=== PATIENT | male | born 1945 | race Caucasian/White ===

== ENCOUNTER → 2018-11-15 | Outpatient (CLI) | payer OTHER ==
[~2018-11-15] VITALS: Ht 180.3 cm; Wt 102.1 kg
[~2018-11-15] MED LIST: AMARYL4 MG PO; ASPIRIN325 PO; FLOMAX0.4 MG PO; FOSINOPRIL SODI40 M1 PO; GLUCOPHAGE XR500 MG PO; JARDIANCE25 MG PO; LIPITOR40 MG PO; TOPROL XL100 MG PO; TRULICITY1.5 MG/0.5 SUBQ; TYLENOL EXTRA500 MG PO; VITAMIN B-12500 MCG PO; VITAMIN D-32000 UNIT PO; ZETIA10 MG PO
--- NOTE | ~2018-11-15 | P ---
[facility] [address] [place] [address] PROCEDURE REPORT Name: MIGUE ASTUDILLO Room #: REG [facility]#: [id number] Admission: 11/15/18 ������������������ Attend Phys: Donald Dan MD Discharge: ������������������ Date of : 47 Report #: [id number] THIS REPORT FOR: //name// CC: Donald Degroot DATE OF SERVICE: 11/15/2018 BRIEF HISTORY: The patient is a 73-year-old male with history of colon polyps, for high risk screening colonoscopy. PREOPERATIVE DIAGNOSIS: History of colon polyps, high risk screening colonoscopy. POSTOPERATIVE DIAGNOSES: 1. Polyps x 2, cecum. 2. Diffuse colonic varices. 3. Patchy radiation proctitis, nonhemorrhagic. MEDICATIONS: Deep sedation with propofol per anesthesia. SPECIMENS: Colon polyps x 2. ESTIMATED BLOOD LOSS: 3 mL. PROCEDURE: Colonoscopy to cecum and terminal ileum with snare polypectomy. FINDINGS: Prior to propofol sedation, procedure of colonoscopy was discussed with the patient as well as potential risks and its complications. He indicates he understands and desires to proceed. DESCRIPTION OF PROCEDURE: With the patient in left lateral decubitus position, digital examination was completed, which revealed no abnormalities. Subsequently, Olympus video colonoscope was introduced in the rectum and advanced under direct vision to the cecum. Done with minimal difficulty. The cecum was identified by the ileocecal valve and the appendiceal orifice. I was able to visualize the distal segment of terminal ileum, which was inspected and noted to be unremarkable. At that point, the scope was slowly withdrawn and careful circumferential views obtained. Unfortunately, the prep was limited, especially in the proximal colon, there was a thick coating of bilious material and also some semi-solid material scattered about the colon, more so on the proximal colon and distal colon. In particular, the prep was fairly poor in the cecum. In spite of that, we could see 2 polyps, one was a diminutive polyp and removed with biopsy forceps. The other was a sessile polyp. This may be an inflammatory polyp as it has an irregular appearance. It was removed by [facility] [address] [place] [address] PROCEDURE REPORT Name: MIGUE ASTUDILLO Room #: REG DANIKA Rodas#: [id number] Admission: 11/15/18 ������������������ Attend Phys: Donald Dan MD Discharge: ������������������ Date of : 46 Report #: [id number] snare polypectomy. It was about 5-6 mm in greatest dimension. There was good hemostasis after removing this polyp. At that point, the scope was slowly withdrawn and careful circumferential views obtained. Again, there were limitations of the prep more so proximally than distally. As we withdrew the scope, the mucosa was within normal limits, normal vascular pattern, normal light reflex as well as could be visualized. Once again, the patient was noted to have colonic varices throughout the entire colon; however, there is no evidence of active bleeding. It is also noteworthy that there were no varices in the region of the polypectomies. As we withdrew the scope, no additional abnormalities were seen. We irrigated and cleaned the colon as well as possible, but some material remained and smaller lesions or flat lesions could have been overlooked. The scope was withdrawn in the rectum and no abnormalities were seen; however, upon retroflexion, there was some patchy erythema and possibly vascular ectasias. There was no evidence of bleeding. It is noted that the patient has had radiation therapy and this may represent radiation proctitis. Since he has not had problems with bleeding, no intervention was undertaken. The scope was withdrawn. The patient tolerated the procedure well. CONDITION OF THE PATIENT UPON DISCHARGE: Following procedure, the patient drowsy, aroused, conversant and will be discharged to home when fully ambulatory. INSTRUCTIONS TO THE PATIENT AND FAMILY AT THE TIME OF DISCHARGE: We will follow up on the pathology of polyp and make further recommendations; however, in view of the fact that there were significant limitations of the prep today, suggest return in 2 years for next high risk screening colonoscopy. If the patient has any further bleeding, he should seek immediate attention and even go in to the Emergency Room. He will return to the care of Dr. Kade Riddle and return to see me as needed. ��������������������������������������������� ���������������������������������������� By: ��������������������������������������������� 1027 35 Donald Dan MD /keshav
--- NOTE | 2018-11-18 14:06 | PATH ---
[facility] [address] [place] [address] PATHOLOGY RPT PROCEDURE Name: WILDAMIGUE Room #: REG DANIKA Mcgowan.#: [id number] ������������������ Admission: 11/15/18 ������������������ Date of : 46 Discharge: Report #: [id number] Path Case #: [id number] [facility] Accession Number: [id number] . 01 Material submitted: . cecum - BX POLYP AT CECUM X2 . 01 Clinical history: . History of polyps, colonic varices. . 02 Diagnosis: Colonic mucosa "biopsy polyp at cecum x 2": - One fragment reveals a polypoid, ulcerated granulation tissue with few hyperplastic glands without any evidence of adenomatous change, high-grade dysplasia or malignancy. - The other fragment reveals mild hyperplastic changes without any evidence of adenomatous change, high-grade dysplasia or malignancy. (SHA:pit; 11/18/2018) QTP/11/18/2018 . 02 Electronically signed: . Fuad Mora MD, Pathologist NPI- [id number] . 01 Gross description: . Received in formalin labeled "Migue Elizabeth, biopsy polyp at cecum x2" is a 0.6 x 0.6 x 0.3 cm aggregate of flowers-brown mucosa fragments. The specimen is submitted in A1. ([facility] 11/17/2018) SYC/SYC . 02 Pathologist provided ICD-10: K63.5 . 02 CPT . 919667 Specimen Comment: A courtesy copy of this report has been sent to Specimen Comment: [phone], . Specimen Comment: Report sent to / DR HUERTA Specimen Comment: A duplicate report has been generated due to demographic updates. Performed at: [address] [id number] MD Jaylen Hunter MD Phone: [phone] Performed at: [address] [id number] [address] [address] PATHOLOGY RPT PROCEDURE Name: MIGUE ELIZABETH Room #: REG DANIKA Mcgowan.#: [id number] ������������������ Admission: 11/15/18 ������������������ Date of : 46 Discharge: Report #: [id number] Path Case #: [id number] MD Hawa Banegas MD Phone: [phone]
== END | disposition home or self-care (01) ==
LOC: GI 07:45
DX: Z12.11 Encounter for screening for malignant neoplasm of colon (principal); Z86.010 Personal history of colon polyps; K63.5 Polyp of colon; K63.89 Other specified diseases of intestine; K62.7 Radiation proctitis; I86.8 Varicose veins of other specified sites; I10 Essential (primary) hypertension; E11.9 Type 2 diabetes mellitus without complications; I25.2 Old myocardial infarction; E78.5 Hyperlipidemia, unspecified; Z87.442 Personal history of urinary calculi; Z87.891 Personal history of nicotine dependence; Z85.46 Personal history of malignant neoplasm of prostate; Z94.9 Transplanted organ and tissue status, unspecified; Z98.41 Cataract extraction status, right eye; Z98.890 Other specified postprocedural states; Z79.899 Other long term (current) drug therapy; Z88.8 Allergy status to other drugs, medicaments and biological substances; Z79.82 Long term (current) use of aspirin
CPT/HCPCS: 62110; 62900

== ENCOUNTER → 2019-06-10 | Outpatient (CLI) | payer OTHER | LOC: SJCVCIMAG 09:35 | DX: I25.10 Atherosclerotic heart disease of native coronary artery without angina pectoris (principal); I10 Essential (primary) hypertension; E78.00 Pure hypercholesterolemia, unspecified; E11.9 Type 2 diabetes mellitus without complications; Z98.61 Coronary angioplasty status; Z87.891 Personal history of nicotine dependence ==

== ENCOUNTER → 2020-03-10 | Outpatient (CLI) | payer OTHER ==
[~2020-03-10] MED LIST changes: +HUMALOG KW100 UNIT/1 SUBQ; +HUMALOG100 UNIT/1 SUBQ; +TOUCH-TROL1 EACH INJECTION
== END ==
LOC: SJCVC 13:15
PROVIDERS: ATTEND Internal Medicine Cardiovascular Disease
DX: R94.31 Abnormal electrocardiogram [ECG] [EKG] (principal); I11.9 Hypertensive heart disease without heart failure; I25.10 Atherosclerotic heart disease of native coronary artery without angina pectoris; E78.00 Pure hypercholesterolemia, unspecified; I77.9 Disorder of arteries and arterioles, unspecified; E11.9 Type 2 diabetes mellitus without complications; Z79.82 Long term (current) use of aspirin; Z79.4 Long term (current) use of insulin; Z79.899 Other long term (current) drug therapy; Z87.891 Personal history of nicotine dependence

== ENCOUNTER → 2020-03-15 | Outpatient (CLI) | payer OTHER ==
[~2020-03-15] MED LIST changes: -HUMALOG KW100 UNIT/1 SUBQ; -HUMALOG100 UNIT/1 SUBQ; -TOUCH-TROL1 EACH INJECTION
== END ==
LOC: SJCVC 12:59
PROVIDERS: ATTEND Internal Medicine Cardiovascular Disease
DX: R94.31 Abnormal electrocardiogram [ECG] [EKG] (principal); R00.0 Tachycardia, unspecified; I44.4 Left anterior fascicular block; I10 Essential (primary) hypertension; I25.10 Atherosclerotic heart disease of native coronary artery without angina pectoris; E78.00 Pure hypercholesterolemia, unspecified; E11.9 Type 2 diabetes mellitus without complications; I77.9 Disorder of arteries and arterioles, unspecified; Z79.4 Long term (current) use of insulin; Z79.899 Other long term (current) drug therapy; Z87.891 Personal history of nicotine dependence

== ENCOUNTER → 2020-03-18 | Outpatient (CLI) | payer OTHER | LOC: SJCVCIMAG 08:05 | PROVIDERS: ATTEND Internal Medicine Cardiovascular Disease | DX: I37.8 Other nonrheumatic pulmonary valve disorders (principal); R94.31 Abnormal electrocardiogram [ECG] [EKG]; I25.10 Atherosclerotic heart disease of native coronary artery without angina pectoris; E11.9 Type 2 diabetes mellitus without complications; I10 Essential (primary) hypertension; E78.00 Pure hypercholesterolemia, unspecified; R53.83 Other fatigue; Z79.4 Long term (current) use of insulin; Z79.899 Other long term (current) drug therapy; Z87.891 Personal history of nicotine dependence ==

== ENCOUNTER 2020-03-23 06:23 | Inpatient (IN) | payer OTHER ==
[~2020-03-23] VITALS: Ht 180.3 cm; Wt 102.1 kg
--- NOTE | 2020-03-23 07:19 | EKG ---
[facility] [place] [address] ELECTROCARDIOGRAM REPORT Name: WILDAMIGUE Montanez Room #: REG [facility].#: [id number] Admission: 03/23/20 Attend Phys: Oscar Buckner MD, Discharge: Date of : 46 Report #: [id number] THIS REPORT FOR: cc: Kade Riddle Theodore M. 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 : 1945 Requested By: Oscar Buckner Order Number: [id number] MD: Miguel Mae Measurements Intervals [place] Rate: 83 P: 14 NM: 168 QRS: -41 QRSD: 120 T: 44 QT: 367 QTc: 432 Interpretive Statements Sinus rhythm Left anterior fascicular block Left ventricular hypertrophy Compared to ECG 01/03/2000 19:10:08 Left anterior fascicular block now present Poor R-wave progression no longer present Electronically Signed On 03-23-2020 7:19:52 OBSTETRICS GYN by Miguel Mae [email or web address] <ELECTRONICALLY SIGNED> By: Miguel Mae MD, FACC 03/23/20718 5 5 Miguel Mae MD, FACC /EPI
[2020-03-23 07:20] VITALS: BP 129/72
[2020-03-23] MEDS ORDERED: HUMALOG100 UNIT/1 SUBQ (07:44)
[2020-03-23] MEDS ORDERED: HUMALOG KW100 UNIT/1 SUBQ (07:45)
[2020-03-23] MEDS ORDERED: TOUCH-TROL1 EACH INJECTION (07:46)
[2020-03-23 07:53] LABS: HEMATOCRIT 29.9 % (42.0-52.0); MCH 32.5 pg (26.0-34.0); MCHC 33.4 g/dL (28.0-37.0); MCV 97.3 fL (80.0-100.0); RBC 3.07 mil/uL (4.50-6.00); RDW 14.4 % (10.5-14.5); WBC 6.8 thou/uL (4.0-11.0)
[2020-03-23 08:06] LABS: CALCIUM 9.1 mg/dL (8.5-10.1); CREATININE 1.3 mg/dL (0.7-1.3); POTASSIUM 4.4 mmol/L (3.5-5.1)
[2020-03-23 10:49] LABS: ABSOLUTE NEUTROPHILS 5.3 thou/uL (1.4-8.2); BASOPHILS 0.7 % (0.0-2.0); HEMATOCRIT 27.4 % (42.0-52.0); HEMOGLOBIN 9.1 gm/dL (14.0-18.0); LYMPHOCYTES 13.3 % (24.0-44.0); MCH 32.4 pg (26.0-34.0); MCHC 33.1 g/dL (28.0-37.0); MCV 97.9 fL (80.0-100.0); MONOCYTES 6.8 % (1.0-8.0); PLATELET COUNT 207 thou/uL (150-400); POLYS 72.2 % (36.0-66.0); RDW 14.6 % (10.5-14.5); WBC 7.4 thou/uL (4.0-11.0)
[2020-03-23 11:10] LABS: ALBUMIN 3.3 g/dL (3.4-5.0); TOTAL BILIRUBIN 0.8 mg/dL (0.2-1.0); TOTAL PROTEIN 6.5 g/dL (6.4-8.2)
[2020-03-23 11:12] LABS: APTT 21.2 Seconds (24.5-32.8); INR 1.1
--- NOTE | 2020-03-23 11:38 | CATHLAB ---
[facility] [address] [place] [address] INVASIVE PROCEDURE REPORT Name: MIGUE ASTUDILLO Room #: [facility] DANIKA McgowanMasood#: [id number] Admission: 03/23/20 Attend Phys: Oscar Buckner MD, Discharge: Date of : 46 Report #: [id number] THIS REPORT FOR: cc: Kade Riddle Theodore M. DO Mancuso, Gerald M. MD [facility] ~ APPROVED REPORT Study performed: 03/23/2020 08:25:15 Patient Details Patient Status: Out-Patient Room #: The patient is a 74 year-old male Event Personnel Oscar Buckner Rolfer, Denver Kim RN RN, Luz Marina Zabala Monitor, Milady Alvarado RTR Scrub Procedures Performed Art Access - R femoral artery* 90356 Initial Mod Sed Same Phys/QHP Gr5y 494636 Left Heart Cath w/or w/o Coronaries [id number] [facility] Aortogram Abdominal Peripheral Angio 629378 Hemostasis w/ Mynx Indication Positive stress test Procedure Narrative The patient was brought electively to the Cardiac Catheterization Laboratory and was prepped and draped in a sterile manner. The Right Groin^ was infiltrated with 1% Lidocaine subcutaneous anesthesia. A PINNACLE 6FR Sheath #[id number] sheath was inserted into the RFA^. Coronary angiography was performed using coronary diagnostic catheters. The right coronary system was accessed and visualized with a JR 4 catheter. The left coronary system was accessed and visualized with a JL 4 catheter. The left ventricle was accessed and visualized with a Pigtail catheter. Left ventriculogram was performed in GREGORY projection. An aortogram of the femoral arteryabdominal aorta was performed. Pre-demployment femoral angiogram was performed . Closure device was deployed with a 6 Fr Mynx. The patient tolerated the procedure well and there were no complications associated with the procedure. There was no hematoma. Intraoperative Conscious Sedation [facility] [place] [address] INVASIVE PROCEDURE REPORT Name: MIGUE ASTUDILLO [id number] Admission: 03/23/20 Attend Phys: Oscar Buckner, Discharge: Date of : 46 Report #: [id number] Sedation start time: 08:54 Case end Time: 09:18 Fentanyl 75 mcg Versed 1.5 mg Fluoro Time: 2.20 minutes Dose: DAP 7862.00 cGycm2 1043 mGy Contrast Type and Amount: Visipaque 135 ml Hemodynamics The aortic pressure is 122/61 mmHg with a mean of 85 mmHg. The left ventricular pressure is 133/5 mmHg with a mean of mmHg. The left ventricular end diastolic pressure is 18 mmHg. Conclusion #1. Normal left ventricular size and a small focal area of the mid to distal inferior apex hypokinesis EF is 5055% #2 abdominal aortogram is mild tortuosity but no evidence of aneurysm single bilateral renal arteries appear to be widely patent. #3 an eccentric calcified lesion in the proximal mid left main of 80% giving rise to LAD and circumflex. #4 LAD heavily calcified proximally and a high grade eccentric calcified lesion in the proximal LAD of 90% with mild diffuse distal disease. #5 circumflex OM nondominant but moderate distribution 1 large OM is widely patent. #6 large dominant right coronary artery also proximal calcification with mild irregularity. No high-grade occlusive disease. Large posterior lateral branch and PDA calcified but patent. Recommendations and plan: Aggressive risk factor modification. Will admit patient for revascularization by bypass surgery. These heavily calcified eccentric left main and LAD lesions are not amenable to percutaneous intervention or debulking. Patient with good distal targets preserved LV function. Hemodynamically stable and pain-free will transfer to CCU. CV surgical consultation. <ELECTRONICALLY SIGNED> By: Oscar Buckner MD, FACC 03/23/20 1138 1138 1138 Oscar Buckner MD, FACC /INF
[2020-03-23 13:57] VITALS: BP 127/70
--- NOTE | 2020-03-23 14:31 | NUR ---
ASSUMED CARE OF PT AT APPROX 1345 FROM LEAD SALES CONSULTANT. NO INTERVENTIONS, CABG PLANNED TOMORROW. R GROIN SITE CDI, NO BRUISING OR HEMATOMA. BEDREST COMPLETE BEFORE PT ARRIVED ON UNIT. ADMISSION CHECKLIST COMPLETE. PT SETTLED AND ORIENTED TO ROOM. AT BEDSIDE. WILL CONTINUE TO MONITOR AND FOLLOW POC.
--- NOTE | 2020-03-23 17:59 | NUR ---
ASSUMED CARE OF AT APPROX 1345. ASSESSMENT CHARTED. MEDS GIVEN JUN. PT A&OX4, NO C/O PAIN. R GROIN SITE CDI, NO HEMATOMA OR BRUISING. PLAN FOR CABG TOMORROW. WILL CONTINUE TO MONITOR AND FOLLOW POC.
[2020-03-23 19:55] VITALS: BP 133/72
[2020-03-24] VITALS (36 sets, daily range): BP systolic 93–134; BP diastolic 49–70
[2020-03-24 00:06] LABS: GLYCOHEMOGLOBIN (HGB A1C) 6.7 % (4.8-5.6)
--- NOTE | 2020-03-24 06:25 | NUR ---
PATIENT IS PROGRESSING IN HIS CARE PLAN. VITAL SIGNS STABLE WITH PATIENT HAVING NO COMPLAINTS OF PAIN OR NAUSEA. FULLY ORIENTED, PATIENT IS ABLE TO CALL APPROPRIATELY FOR NEEDS AND PARTICIPATE IN CARE. NO EVENTS ON TELE. PATIENT KEPT NPO FROM MIDNIGHT ON IN ANTICIPATION OF TODAYS PROCEDURE. CHLORHEXADINE BATH x2 AND ALL OTHER PRE OP CARE COMPLETED. CONTINUE PLAN OF CARE.
[2020-03-24 06:50] LABS: HEMATOCRIT 30.3 % (42.0-52.0); HEMOGLOBIN 10.2 gm/dL (14.0-18.0)
[2020-03-24 12:03] LABS: MCH 32.1 pg (26.0-34.0); WBC 9.6 thou/uL (4.0-11.0)
[2020-03-24 12:04] LABS: MCHC 33.1 g/dL (28.0-37.0); RBC 2.05 mil/uL (4.50-6.00); RDW 14.4 % (10.5-14.5)
[2020-03-24 12:04] LABS: POC BE -4 mmol/L (-2.0 to +3.0); POC GLUCOSE 130 mg/dL (70-99); POC HCO3 21.5 mmol/L (22.0-26.0); POC HEMOGLOBIN 9.9 g/dL (14.0-18.0); POC POTASSIUM 4.8 mmol/L (3.5-5.1); POC SODIUM 137 mmol/L (136-145); POC pCO2 37.8 mmHg (35.0-45.0); POC pH 7.363 (7.360-7.450)
[2020-03-24 12:09] LABS: HEMATOCRIT 19.9 % (42.0-52.0); HEMOGLOBIN 6.6 gm/dL (14.0-18.0)
[2020-03-24 12:12] LABS: FIBRINOGEN 152.1 mg/dL (210-360); PROTIME 14.9 Seconds (9.3-11.4)
[2020-03-24 12:17] LABS: APTT 23.3 Seconds (24.5-32.8); INR 1.5
[2020-03-24 12:49] LABS: POC BE -1 mmol/L (-2.0 to +3.0); POC CA IONIZED 4.6 mg/dL (4.5-5.3); POC GLUCOSE 151 mg/dL (70-99); POC HCO3 24.4 mmol/L (22.0-26.0); POC HEMOGLOBIN 7.8 g/dL (14.0-18.0); POC POTASSIUM 5.2 mmol/L (3.5-5.1); POC SODIUM 139 mmol/L (136-145); POC pCO2 45.4 mmHg (35.0-45.0); POC pH 7.338 (7.360-7.450)
[2020-03-24 12:49] LABS: POC BE -6 mmol/L (-2.0 to +3.0); POC CA IONIZED 4.5 mg/dL (4.5-5.3); POC GLUCOSE 126 mg/dL (70-99); POC HCO3 20.1 mmol/L (22.0-26.0); POC HEMOGLOBIN 8.2 g/dL (14.0-18.0); POC POTASSIUM 5.2 mmol/L (3.5-5.1); POC SODIUM 137 mmol/L (136-145); POC pCO2 41.2 mmHg (35.0-45.0); POC pH 7.295 (7.360-7.450)
[2020-03-24 12:49] LABS: POC BE -5 mmol/L (-2.0 to +3.0); POC CA IONIZED 4.7 mg/dL (4.5-5.3); POC GLUCOSE 156 mg/dL (70-99); POC HCO3 22.1 mmol/L (22.0-26.0); POC HEMOGLOBIN 8.2 g/dL (14.0-18.0); POC POTASSIUM 5.5 mmol/L (3.5-5.1); POC SODIUM 137 mmol/L (136-145); POC pCO2 47.4 mmHg (35.0-45.0); POC pH 7.276 (7.360-7.450)
[2020-03-24 12:49] LABS: POC BE -3 mmol/L (-2.0 to +3.0); POC CA IONIZED 4.8 mg/dL (4.5-5.3); POC GLUCOSE 115 mg/dL (70-99); POC HCO3 22.3 mmol/L (22.0-26.0); POC HEMOGLOBIN 9.2 g/dL (14.0-18.0); POC POTASSIUM 4.7 mmol/L (3.5-5.1); POC SODIUM 138 mmol/L (136-145); POC pCO2 38.4 mmHg (35.0-45.0); POC pH 7.372 (7.360-7.450)
[2020-03-24 12:49] LABS: POC BE -2 mmol/L (-2.0 to +3.0); POC CA IONIZED 4.9 mg/dL (4.5-5.3); POC GLUCOSE 124 mg/dL (70-99); POC HCO3 22.9 mmol/L (22.0-26.0); POC HEMOGLOBIN 8.8 g/dL (14.0-18.0); POC POTASSIUM 4.5 mmol/L (3.5-5.1); POC SODIUM 140 mmol/L (136-145); POC pCO2 38.8 mmHg (35.0-45.0)
[2020-03-24 12:49] LABS: POC BE -2 mmol/L (-2.0 to +3.0); POC CA IONIZED 5.2 mg/dL (4.5-5.3); POC GLUCOSE 129 mg/dL (70-99); POC HCO3 22.6 mmol/L (22.0-26.0); POC HEMOGLOBIN 7.5 g/dL (14.0-18.0); POC POTASSIUM 4.7 mmol/L (3.5-5.1); POC SODIUM 139 mmol/L (136-145); POC pCO2 36.6 mmHg (35.0-45.0); POC pH 7.399 (7.360-7.450)
[2020-03-24 13:32] LABS: BE(vivo) -4.8 mmol/L (-2 to +3); HCO3 20.7 mmol/L (22.0-26.0); PCO2 39.9 mmHg (35.0-45.0); PO2 90.8 mmHg (80.0-100.0); pH 7.333 (7.360-7.450); sO2 96.5 % (92.0-98.0)
--- NOTE | 2020-03-24 13:34 | EKG ---
[facility] [place] [address] ELECTROCARDIOGRAM REPORT Name: MIGUE ASTUDILLO Tarik Room #: 248-P ADM IN M.R.#: [id number] Admission: 03/23/20 Attend Phys: Donald Hartman MD Discharge: Date of : 46 Report #: [id number] THIS REPORT FOR: cc: Kade Riddle Theodore M. 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 : 1945 Requested By: Bhanu Sinclair Order Number: [id number] MD: Miguel Mae Measurements Intervals [place] Rate: 85 P: 49 DC: 181 QRS: -44 QRSD: 125 T: 32 QT: 402 QTc: 478 Interpretive Statements Sinus rhythm Nonspecific IVCD with LAD Compared to ECG 03/23/2020 07:16:02 Intraventricular conduction delay now present Left anterior fascicular block no longer present Left ventricular hypertrophy no longer present Electronically Signed On 03-24-2020 13:34:45 RN TRANSITION by Miguel Mae [email or web address] <ELECTRONICALLY SIGNED> By: Miguel Mae MD, FACC 03/24/20 1334 1325 1325 Miguel Mae MD, FAC /EPI
[2020-03-24 13:40] LABS: CALCIUM 8.5 mg/dL (8.5-10.1); CREATININE 1.1 mg/dL (0.7-1.3); MAGNESIUM 2.7 mg/dL (1.8-2.4); POTASSIUM 4.6 mmol/L (3.5-5.1)
[2020-03-24 13:41] LABS: HEMATOCRIT 28.3 % (42.0-52.0); MCH 32.2 pg (26.0-34.0); MCHC 33.2 g/dL (28.0-37.0); MCV 97.1 fL (80.0-100.0); RBC 2.92 mil/uL (4.50-6.00); RDW 14.6 % (10.5-14.5); WBC 10.9 thou/uL (4.0-11.0)
[2020-03-24 13:43] LABS: HEMOGLOBIN 9.4 gm/dL (14.0-18.0)
--- NOTE | 2020-03-24 13:45 | NUR ---
PT CAME TO THE ICU AT 1245 ACCOMPANIED BY OR TEAM. PT CONNECTED TO ICU MONITORS. CARDENE AT 5MG/HR AND PROPOFOL AT 25 MCG/KG/MIN ON ARRIVAL TO ICU. DR STUART AT BEDSIDE. ARTERIAL LINES ZEROED. CONTINUE TO MONITOR.
[2020-03-24 13:47] LABS: APTT 24.5 Seconds (24.5-32.8); INR 1.2; PROTIME 12.2 Seconds (9.3-11.4)
--- NOTE | 2020-03-24 14:55 | NUR ---
PT IVÁN AT BEDSIDE. SHE WAS UPDATED ON THE VISITING POLICY AND ALSO GIVEN ICU PRIVACY CODE. PT BELONGINGS FROM - CELLPHONE, GLASSES AND BOOKS AT BEDSIDE TABLE.
[2020-03-24 15:50] LABS: BE(vivo) -13.2 mmol/L (-2 to +3); HCO3 11.3 mmol/L (22.0-26.0); PCO2 21.5 mmHg (35.0-45.0); PO2 92.6 mmHg (80.0-100.0); pH 7.338 (7.360-7.450); sO2 96.9 % (92.0-98.0)
--- NOTE | 2020-03-24 16:51 | NUR ---
chart review. new to icu this afternoon. unable to visit with janet pedroza post op procedure. will cont following as needed for dc needs. bedside nurse provided updates to pt at bedside.
[2020-03-24 17:39] LABS: BE(vivo) -11.6 mmol/L (-2 to +3); HCO3 13.4 mmol/L (22.0-26.0); PCO2 27.2 mmHg (35.0-45.0); PO2 88.1 mmHg (80.0-100.0); sO2 96.2 % (92.0-98.0)
--- NOTE | 2020-03-24 18:40 | NUR ---
ATTEMPTED TO CALL PT IVÁN BY THIS RN
[2020-03-25] VITALS (36 sets, daily range): BP systolic 96–134; BP diastolic 47–57
[2020-03-25 05:55] LABS: HEMATOCRIT 26.8 % (42.0-52.0); HEMOGLOBIN 8.8 gm/dL (14.0-18.0); MCH 31.5 pg (26.0-34.0); MCHC 32.9 g/dL (28.0-37.0); MCV 95.6 fL (80.0-100.0); RBC 2.8 mil/uL (4.50-6.00); RDW 14.8 % (10.5-14.5); WBC 11.1 thou/uL (4.0-11.0)
[2020-03-25 05:58] LABS: CALCIUM 8.5 mg/dL (8.5-10.1); CREATININE 1.6 mg/dL (0.7-1.3); MAGNESIUM 2.6 mg/dL (1.8-2.4)
[2020-03-25 06:27] LABS: POTASSIUM 3.2 mmol/L (3.5-5.1)
--- NOTE | 2020-03-25 09:22 | H ---
[facility] [address] [place] [address] HISTORY AND PHYSICAL Name: MIGUE ELIZABETH Room #: 248-P ADM IN M.R.#: [id number] Admission: 03/23/20 Attend Phys: Donald Hartman MD Discharge: Date of : 46 Report #: [id number] THIS REPORT FOR: cc: Kade Riddle Theodore M. DO Mancuso, Gerald M. MD [facility] ~ CC: Oscar Riddle DO DATE OF SERVICE: 03/23/2020 HISTORY OF PRESENT ILLNESS: The patient is a 74-year-old male who was admitted today for cardiac catheterization. He has been having some subtle complaints of some decreased exercise tolerance, some intermittent tachycardia, hypotensive episodes. He has had a remote angioplasty in 1996. This was to the RCA, PDA. There has been no intervention or catheterization since that time. His limited echo revealed normal preserved LV function. Mild valvular insufficiency. Last carotid was 2017 and that will be repeated today, which had mild plaquing. He has underlying diabetes, hypertension, hypercholesterolemia. He has been fairly active, but a definite decrease in exercise tolerance. We have held the fosinopril because of the hypotension. He was subsequently taken to the catheterization lab this morning, which reveals significant calcification and narrowing in the left main of 70% and a high-grade and extremely large calcified plaque in the proximal LAD of 90%, otherwise preserved vessels and an inferior apical hypokinesis from the remote angioplasty in 1996, but the only mild RCA disease. He is hemodynamically stable and pain free. He will be admitted to the CCU. MEDICATIONS: Aspirin, atorvastatin 40, vitamin D3, B12, Trulicity, Jardiance 25 mg a day, Zetia 10, glimepiride 4, insulin, metformin 1000, which was held for the last 2 days, metoprolol 100, which was continued, Flomax and a fosinopril was stopped last week. PAST MEDICAL HISTORY: Positive for the coronary artery disease with a remote angioplasty, hypertension, hypercholesterolemia, DJD, appendectomy, hernia repair, abdominal abscess remotely, diabetes. SOCIAL HISTORY: He is . He is retired. Prior smoker, social alcohol, no drug use. Two cups of coffee a day. FAMILY HISTORY: Positive. Both mother and father had premature coronary artery disease. REVIEW OF SYSTEMS: Essentially negative except for stated above. [facility] [address] [place] [address] HISTORY AND PHYSICAL Name: MIGUE ELIZABETH Room #: 248-P [facility]#: [id number] Admission: 03/23/20 Attend Phys: Donald Hartman MD Discharge: Date of : 46 Report #: [id number] PHYSICAL EXAMINATION: VITAL SIGNS: Blood pressure is 136/80, pulse 70. HEENT: Eyes reveal xanthelasmas. Pharynx is clear. NECK: Shows preserved upstrokes without JVD or bruits. LUNGS: Clear. CARDIOVASCULAR: Regular rate and rhythm, S1, S2. ABDOMEN: Soft. No HSM or abdominal bruit. EXTREMITIES: Reveal diminished pulses intact. MUSCULOSKELETAL: Generalized arthritic changes. NEUROLOGIC: Intact. ASSESSMENT: 1. Coronary artery disease with progressive and significant stenosis in the left main, LAD heavily calcified (remote PTCA to RCA, PDA). 2. Mild ischemic cardiomyopathy with old focal inferior apical hypokinesis, EF 50-55%. 3. Diabetes. 4. Hypertension. 5. Hypercholesterolemia. 6. Degenerative joint disease. RECOMMENDATIONS AND PLAN: I have asked Dr. Hartman, CV Surgery to see the patient. The left main and LAD heavily calcified lesion certainly best served with revascularization by bypass. Excellent distal targets, otherwise healthy with preserved renal function. We would obtain carotid Doppler and to proceed with CV surgery in the a.m. This has been discussed in detail with the patient and Ms. Elizabeth. Thank you for asking me to assist in the care of this patient. <ELECTRONICALLY SIGNED> By: Oscar Buckner MD, FACC 03/25/20 0922 1054 1144 Oscar Buckner MD, FACC /nt
--- NOTE | 2020-03-25 11:04 | HC ---
[facility] [address] [place] [address] CONSULTATION Name: MIGUE ASTUDILLO Room #: 248-P ADM IN M.R.#: [id number] Admission: 03/23/20 Attend Phys: Donald Hartman MD Discharge: Date of : 46 Report #: [id number] THIS REPORT FOR: cc: Kade Riddle Theodore M. DO Forman,Donald Venegas MD ~ DATE OF SERVICE: 03/23/2020 We were asked by Dr. Buckner to see the patient. HISTORY OF PRESENT ILLNESS: The patient is a 74-year-old with coronary artery disease. The patient presents with lightheadedness, shortness of breath with exertion that are similar to when he had a myocardial infarct 23 years ago. At that time, the patient states he had angioplasty alone without stent placement. The patient claims to be a generally healthy fellow. He does admit to having diabetes mellitus and takes a statin and is treated for hypertension. The patient denies exertional angina. The patient states he recently had a cardiac echo that was normal. This was a resting transthoracic echo. PAST MEDICAL HISTORY: As mentioned, diabetes mellitus, dyslipidemia, hypertension. PREVIOUS SURGERIES: Include appendectomy with periappendiceal abscess and drainage and abdominal wall hernia (incisional hernia). MEDICATIONS AT HOME: Aspirin, atorvastatin, vitamin D, vitamin B12, Trulicity, Jardiance, Zetia, Amaryl, insulin, metformin, Toprol, Flomax. ALLERGIES: THE PATIENT STATES HE IS ALLERGIC TO LEVOFLOXACIN. REVIEW OF SYSTEMS: GENERAL: Denies fever, weight change. EYES: Denies vision change. HENT: Denies headache, sinus drainage, hearing problems. PULMONARY: Denies cough, hemoptysis, shortness of breath other than with positional changes and exertion. CARDIAC: Denies angina, palpitations. GASTROINTESTINAL: Denies nausea, vomiting, blood. GENITOURINARY: Denies urgency, frequency, blood. MUSCULOSKELETAL: Denies bone or joint pain. SKIN: Denies rash or infection. NEUROLOGIC: Denies motor or sensory loss. [facility] [address] [place] [address] CONSULTATION Name: MIGUE ASTUDILLO Tarik Room #: 248-P [facility] IN M.R.#: [id number] Admission: 03/23/20 Attend Phys: Donald Hratman MD Discharge: Date of : 46 Report #: [id number] HEMATOLOGIC: Denies bleeding and bruisability. ENDOCRINE: Denies goiter or tremor. PHYSICAL EXAMINATION: GENERAL: The patient is awake and alert after cardiac catheterization. VITAL SIGNS: Heart rate 70, blood pressure 120/60. HEENT: No scleral icterus, no arcus. NECK: No mass. Right cervical bruit is audible. CHEST: Clear to auscultation. HEART: Rhythm regular, no murmur. ABDOMEN: Soft. We note the right-sided incisional hernia. EXTREMITIES: No clubbing, cyanosis or edema. SKIN: No rash or infection. VASCULAR: No obvious saphenous vein problems. NEUROLOGIC: No motor or sensory loss. MUSCULOSKELETAL: No bone or joint asymmetry or deformity. Cardiac catheterization data shows 70% left main stenosis and 90% LAD lesions, both relatively focal. Right coronary has trivial disease. Left ventricular ejection fraction appears normal. ASSESSMENT: The patient has left main and left anterior descending stenoses. I have reviewed the cardiac findings with the patient and have recommended coronary artery bypass surgery. The risks and details of this were discussed. Risks include but are not limited to bleeding, infection, anesthesia risks, heart and lung problems, stroke and . Options and alternatives were reviewed. The patient and understand all of this and wish to proceed. We will try to arrange surgery for tomorrow morning and obtain preoperative testing today. The patient understands and agrees with all of this. Thank you for the consult. <ELECTRONICALLY SIGNED> By: Donald Hartman MD 03/25/20 1104 1003 2109 Donald Hartman MD /nt
--- NOTE | 2020-03-25 11:20 | EKG ---
[facility] [address] [place] [address] ELECTROCARDIOGRAM REPORT Name: MIGUE ASTUDILLO Tarik Room #: 248-P ADM IN M.R.#: [id number] Admission: 03/23/20 Attend Phys: Donald Hartman MD Discharge: Date of : 47 Report #: [id number] THIS REPORT FOR: cc: Kade Riddle Theodore M. DO Lammoglia,Jonathan Walters MD ~ THIS REPORT FOR: //name// [facility] Test Date: 2020-03-25 Test Time: 07:59:12 Pat Name: MIGUE ASTUDILLO Department: Room: 248 P Gender: M Physician Anesthesiologist: JANEEN : 1945 Requested By: Bhanu Sinclair Order Number: [id number] MD: Jonathan Rizzo Measurements Intervals [place] Rate: 94 P: -2 MI: 161 QRS: -36 QRSD: 123 T: 94 QT: 370 QTc: 463 Interpretive Statements Sinus rhythm LVH with IVCD, LAD and secondary repol abnrm Compared to ECG 03/24/2020 13:25:51 no significant changes Electronically Signed On 03-25-2020 11:20:19 MARBLE SUPERVISOR by Jonathan Rizzo [email or web address] <ELECTRONICALLY SIGNED> By: Jonathan Rizzo MD 03/25/20 1120 0759 0759 Jonathan Rizzo MD /EPI
--- NOTE | 2020-03-25 15:22 | NUR ---
ALERT AND ORIENTED AND VITALS STABLE, ON CARDENE GTT FOR HTN. MEDICATED FOR PAIN WITH PRN MEDS, A-LINE LEFT GROIN DC'D EARLIER TODAY AND PATIENT TOLERATED WELL. UP TO THE CHAIR FOR LUNCH WITH P.T. NOW BACK IN BED AND MS CHEST TUBES DC'D PER ORDER AND PATIENT TOLERATED WELL. STARTED ON ADA DIET, NO NAUSEA REPORTED. CONTINUES TO USE 4L O2 AND ENCOURAGED TO COUGH AND DEEP BREATH AND USE THE I.S. AT THE BEDSIDE. SPOUSE IN TO VISIT AND QNS ANSWERED. PROGRESSING WELL TOWARDS POC GOALS.
[2020-03-26] VITALS (16 sets, daily range): BP systolic 97–152; BP diastolic 50–60
--- NOTE | 2020-03-26 05:28 | NUR ---
ASSUMED PT CARE AT 1900. VSS. PT A&OX4. PT ON CARDENE GTT AT 7.5MG/HR. TOLERATING WELL. CARDENE WEAN OFF RIGHT NOW; MOST RECENT BP WAS 128/35. NPT PULLS IS TO 1.0. RN ENCOURAGE PT TO KEEP UP WITH DEEP BREATHING EXCERCISES. PT IS STABLE, EXCELLENT OUTPUT OVER NOC. MIDSTERNAL DRESSING REMAINS CDI, IS LEFT GROIN DRESSING AND 2 LEFT LEG GRAFT SITES. PT HAD A FAIRLY DECENT NOC, PAIN MANAGED PRN WITH 1 TAB OF HYDROCODONE. HE REMAINS AFEBRILE, WILL CONTINUE TO MONITOR PER POC.
[2020-03-26 05:56] LABS: HEMATOCRIT 26.1 % (42.0-52.0); HEMOGLOBIN 8.6 gm/dL (14.0-18.0); MCH 31.3 pg (26.0-34.0); MCHC 32.8 g/dL (28.0-37.0); MCV 95.7 fL (80.0-100.0); RBC 2.73 mil/uL (4.50-6.00); RDW 15.2 % (10.5-14.5); WBC 11.9 thou/uL (4.0-11.0)
[2020-03-26 06:16] LABS: CALCIUM 8.8 mg/dL (8.5-10.1); CREATININE 1.3 mg/dL (0.7-1.3); POTASSIUM 4.3 mmol/L (3.5-5.1)
--- NOTE | 2020-03-26 08:51 | NUR ---
Nutrition: Consult received. Pt S/P CABG x 3 and in ICU. Will follow up to determine education needs when out of ICU and closer to D/C.
--- NOTE | 2020-03-26 12:26 | NUR ---
TOOK OVER PATIENT CARE AT 0700. DR. STUART AND CLAUDIA FLORES PA AT BEDSIDE AT 0900. SPOKE TO PATIENTS AT 1030 AND GAVE HER AN UPDATE, CALLED HER BACK 30 MINUTES LATER TO LET HER KNOW THE PATEINTS WOULD BE MOVING TO CCU. PT AT BEDSIDE AT 1100 AND TOOK PATIENT TO CCU. CARRIED ALL OF THE PATIENTS PERSONAL BELONGINGS OVER TO CCU AND LEFT THEM IN HIS ROOM.
--- NOTE | 2020-03-26 12:47 | NUR ---
Case discussed with the care team. Pt moved out of ICU to CCU today. CT dc'd per CTS. Pt is working with therapy. Possible dc home sun/sunday pending his progress. The pt lives with his in a single story home with two steps to enter. He is retired, was driving and indep prior to his heart surgery. No cm interventions indicated at this time. Will follow along should HH referral be needed.
--- NOTE | 2020-03-26 18:38 | NUR ---
PT. ARRIVED AT THE FLOOR AROUND 1100; PT. AOX4; C/O PAIN 09/06; REFUSED PRN PAIN MEDICATION; EDUCATED ABOUT PAIN MANAGEMENT; [facility]. [facility]STAND[facility]; WORKED WITH PT AND OT; ABLE TO VOID AFTER D/C [facility]; SR ON THE MONITOR; REQUESTED TO GO BACK TO BED AFTER DINNER; EDUCATED TO STAY ON CHAIR FOR ABOUT 30 MIN AFTER DINNER; ST. UNDERSTANDING; PRN MIRALAX GIVEN; NO ABLE TO HAVE BM; BACK TO BED AROUND 1800; PRN PAIN MEDICATION GIVEN; ASSESSMENT CHARGED; FOLLOWING POC; WILL PASS ON REPORT;
[2020-03-27 04:45] VITALS: BP 114/50
--- NOTE | 2020-03-27 05:30 | NUR ---
PATIENT SLEPT THROUGH MOST OF THE NIGHT. VSS. NO COMPLAINTS OF PAIN TONIGHT. USES URINAL AT BEDSIDE. PT ON 4L, NO COMPLAINTS OF SOA. FALL PRECAUTIONS IN PLACE. BRIEF IN PLACE PER PATIENT REQUEST, INCONTINENT AT TIMES. FOLLOWING POC AND CONTINUING TO ASSESS NEEDED
[2020-03-27 08:00] VITALS: BP 111/50
[2020-03-27 10:58] VITALS: BP 116/54
--- NOTE | 2020-03-27 11:35 | NUR ---
ASSESSMENT CHARTED. PT ALERT AND ORIENTED. WITH FORGETFULNESS. DENIED HAVING PAIN OR DISCOMFORT. SEEN BY DR. MCMAHON. ORDERS GIVEN TO DISCHARGE PT TO HOME. DISCHARGE INSTRUCTIONS GIVEN TO PT. PT VERBERLISED UNDERSTANDING.
[2020-03-27 15:45] VITALS: BP 142/80
[2020-03-27 16:00] VITALS: BP 130/56
--- NOTE | 2020-03-27 17:25 | NUR ---
ASSESSMENT CHARTED. PT ALERT AND ORIENTED. VSS. DENIED HAVING PAIN OR DISCOMFORT. UP IN THE CHAIR THIS SHIFT. HAD A SHOWER. SR ON TELE. PARTICIPATED IN PT/OT. NO CONCERNS AT THIS TIME.
[2020-03-27 20:55] VITALS: BP 129/58
--- NOTE | 2020-03-28 02:34 | NUR ---
ASSUMED PT CARE AT THE CHANGE OF SHIFT, PT IS AWAKE, ALERT AND ORIENTED, SR ON THE MONITOR, ASESSMENTS CHARTED, VSS, C/O NAUSEA, ZOFRAN GIVEN WITH RELIEF, C/O PAIN OF A 5, PAIN MEDICATIONS GIVEN WITH RELIEF,PICCO DRESSING INTACT, DENIES HAVING CONCERNS, PROGRESSING TOWARDS POC
[2020-03-28 05:00] VITALS: BP 115/69
[2020-03-28 05:07] LABS: HEMATOCRIT 26.3 % (42.0-52.0); HEMOGLOBIN 8.6 gm/dL (14.0-18.0); MCH 31.4 pg (26.0-34.0); MCHC 32.6 g/dL (28.0-37.0); MCV 96.4 fL (80.0-100.0); RBC 2.73 mil/uL (4.50-6.00); RDW 15.4 % (10.5-14.5)
[2020-03-28 05:24] LABS: CALCIUM 8.4 mg/dL (8.5-10.1); CREATININE 1.1 mg/dL (0.7-1.3); POTASSIUM 4.5 mmol/L (3.5-5.1)
[2020-03-28 08:00] VITALS: BP 119/72
--- NOTE | 2020-03-28 10:24 | EKG ---
[facility] [place] [address] ELECTROCARDIOGRAM REPORT Name: WILDAMIGUE Room #: 211-P ADM IN M.R.#: [id number] Admission: 03/23/20 Attend Phys: Donald Hartman MD Discharge: Date of : 47 Report #: [id number] THIS REPORT FOR: cc: Kade Riddle Theodore M. 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: JANEEN : 1945 Requested By: Bhanu Sinclair Order Number: [id number] MD: Jonathan Rizzo Measurements Intervals Raymond Rate: 84 P: 40 RI: 146 QRS: -36 QRSD: 122 T: 77 QT: 387 QTc: 458 Interpretive Statements Sinus rhythm Nonspecific IVCD with LAD Nonspecific ST-T wave change Compared to ECG 03/25/2020 07:59:12 No significant difference Electronically Signed On 03-28-2020 10:24:26 BRIDGE INSTRUCTOR by Jonathan Rizzo [email or web address] <ELECTRONICALLY SIGNED> By: Jonathan Rizzo MD 03/28/20 1024 0745 0745 Jonathan Rizzo MD /EPI
[2020-03-28 12:00] VITALS: BP 111/66
[2020-03-28 16:00] VITALS: BP 113/61
--- NOTE | 2020-03-28 16:14 | NUR ---
ASSESSMENT CHARTED. PT ALERT AND ORIENTED. VSS. UP IN THE CHAIR THIS SHIFT. AMBULATED X2. STERNUM PRECAUTION ENFORCED. RAN DRESSING C/D/I. PT PROGRESSING WELL TOWARDS DISCHARGE GOAL. NO CONCERNS AT THIS TIME.
[2020-03-28 19:59] VITALS: BP 121/60
[2020-03-29 03:25] VITALS: BP 109/54
[2020-03-29 08:43] VITALS: BP 128/64
[2020-03-29] MEDS ORDERED: ASPIR 8181 MG PO (10:29)
[2020-03-29] MEDS ORDERED: FERREX 150 PLU1 EAC1 PO (10:30)
[2020-03-29 11:30] VITALS: BP 119/69
[2020-03-29 11:39] VITALS: BP 128/64
[2020-03-29 12:41] VITALS: BP 128/64
--- NOTE | 2020-03-29 13:14 | NUR ---
I have reviewed the documentation by DAMIEN DALE from 03/29/20 to 03/29/20 and I concur with it. GRANT CARNEY, PT, DPT
--- NOTE | 2020-03-29 13:25 | NUR ---
ASSUMED CARE PT SHIFT CHANGE. ASSESSMENT CHARTED.MEDS GIVEN PER JUN. PT ALERT AND ORIENTED. VSS. DENIES PAIN. PT WEENED OFF O2. BREATHING WELL ON RA. SPOUSE AT BEDSIDE IN AFTERNOON. DC ORDERS ACKNOWLEDGED AND IMPLEMENTED. DC PAPERWORK DISCUSSED WITH PT AND SPOUSE COMMUNICATES UDNERSTANDING .IV REMOVED, TELE DC'D. PT LEFT UNIT WITH ALL BELONGINGS WITH SPOUSE AT BEDSIDE.
--- NOTE | 2020-04-02 11:05 | O ---
[facility] [address] [place] [address] OPERATIVE REPORT Name: MIGUE ASTUDILLO Room #: 211-P [facility] IN M.R.#: [id number] Admission: 03/23/20 Attend Phys: Donald Hartman MD Discharge: 03/29/20 Date of : 47 Report #: [id number] THIS REPORT FOR: cc: Kade Riddle,Kade Norwood,Donald Venegas MD ~ CC: Donald Riddle DATE OF SERVICE: 03/24/2020 PREOPERATIVE DIAGNOSIS: Coronary artery disease. POSTOPERATIVE DIAGNOSIS: Coronary artery disease. OPERATIONS: Coronary artery bypass x 3 including left internal mammary artery to left anterior descending artery, saphenous vein to marginal 1 and marginal 2, endoscopic harvest left greater saphenous vein, and placement of left femoral arterial line. SURGEON: Donald Hartman MD REED FIXER: JUSTIN Plummer ANESTHESIA: General. INDICATIONS: The patient is a 74-year-old with coronary artery disease. The patient has a high-grade left main and LAD stenoses characterized by significant calcium deposition. Left ventricular function is satisfactory. Right coronary has trivial disease. FINDINGS AND TECHNIQUE: After general anesthesia was established, saphenous vein was harvested using an endoscopic approach and prepared for use as a conduit. Exposure was obtained through median sternotomy. Left internal mammary artery was harvested from chest wall. Pericardial well was made. Cannulation sutures were placed. Heparin was given. Aorta was cannulated. Right atrium was cannulated. Cardioplegia needle was positioned in the aortic root. Retrograde cardioplegic catheter was placed in the coronary sinus. Cardiopulmonary bypass was established. The aorta was cross clamped. Antegrade and retrograde cardioplegia were given. Ice was poured into the pericardial well, the heart was stopped. During electromechanical arrest, the distal anastomoses were performed end-to-side anastomosis was made between vein and the second marginal artery. [facility] [address] [place] [address] OPERATIVE REPORT Name: MIGUE ASTUDILLO Room #: 211-P [facility] IN M.R.#: [id number] Admission: 03/23/20 Attend Phys: Donald Hartman MD Discharge: 03/29/20 Date of : 47 Report #: [id number] Cold cardioplegia was given. The same segment of vein was sewn in [id number] fashion to the first marginal. Cold cardioplegia was given. Left internal mammary artery was sewn in end-to-side fashion to left anterior descending artery. Patency of this vessel was checked with the temperature technique and the Doppler. Cold cardioplegia was given. One proximal anastomosis was performed and this was complete, warm retrograde cardioplegia was given followed by warm continuous blood to the coronary sinus. When this infusion was complete, the crossclamp was removed, de-airing maneuvers were performed. The anastomoses were inspected and found to be satisfactory. As the patient warmed, nice cardiac activity resumed, chest tubes and pacing wires were placed, a marker was placed around the proximal anastomoses. When the patient was warm, he was weaned from cardiopulmonary bypass. Venous cannula was removed. Protamine was given. The aortic cannula was removed. Flows were measured in the bypass grafts. When hemostasis was satisfactory, chest was irrigated with antibiotic solution and closed in the usual fashion. The patient was taken to the Intensive Care Unit in good condition having tolerated the procedure well. All counts reported as correct. It should be mentioned that prior to initiating cardiopulmonary bypass, left femoral arterial line was placed using Seldinger technique. This was done because of the right radial catheter ceased to be giving us accurate information and despite several attempts to reposition the arm and wrist, radial line failed to register and we needed accurate online measurement during the cardiopulmonary bypass. All in all, the patient tolerated surgery nicely. <ELECTRONICALLY SIGNED> By: Donald Hartman MD 04/02/20 1105 1102 1116 Donald Hartman MD /nt
== END 2020-03-29 13:20 | disposition home or self-care (01) | DRG 233 ==
LOC: CATH 06:23 → 2N 13:54 → ICU 13:54 → 2N 13:55 → ICU 03-24 11:30 → 2N 03-26 11:22
PROVIDERS: Anesthesiology; Internal Medicine Cardiovascular Disease; Physician Assistant; ADMIT Surgery Vascular Surgery; ATTEND Surgery Vascular Surgery
DX: I25.10 Atherosclerotic heart disease of native coronary artery without angina pectoris (principal); J96.01 Acute respiratory failure with hypoxia; I10 Essential (primary) hypertension; E78.00 Pure hypercholesterolemia, unspecified; I25.5 Ischemic cardiomyopathy; E87.6 Hypokalemia; E11.51 Type 2 diabetes mellitus with diabetic peripheral angiopathy without gangrene; D64.9 Anemia, unspecified; Z20.828 Contact with and (suspected) exposure to other viral communicable diseases; M19.90 Unspecified osteoarthritis, unspecified site; N40.0 Benign prostatic hyperplasia without lower urinary tract symptoms; E78.5 Hyperlipidemia, unspecified; I65.29 Occlusion and stenosis of unspecified carotid artery; Z79.899 Other long term (current) drug therapy
CPT/HCPCS: 10078; 10081; 47000; 47001; 47002; 47297; 47382; 50249; 50409; 50456; 50498; 50668; 51301; 52259; 52287; 52314; 53327; 53358; 54118; 56455; 56524; 56525; 56526; 56527; 56528; 56531; 56534; 56668; 56719; 56760; 56898; 57093; 57116; 57167; 62110; 62950; 83006

== ENCOUNTER → 2020-08-04 | Outpatient (CLI) | payer OTHER ==
[~2020-08-04] MED LIST changes: +ASPIR 8181 MG PO; +FERREX 150 PLU1 EAC1 PO; +HUMALOG KW100 UNIT/1 SUBQ; +HUMALOG100 UNIT/1 SUBQ; +TOUCH-TROL1 EACH INJECTION
== END ==
LOC: SJCVC 10:47
PROVIDERS: ATTEND Internal Medicine Cardiovascular Disease
DX: R94.31 Abnormal electrocardiogram [ECG] [EKG] (principal); I25.10 Atherosclerotic heart disease of native coronary artery without angina pectoris; I10 Essential (primary) hypertension; E78.00 Pure hypercholesterolemia, unspecified; E11.9 Type 2 diabetes mellitus without complications; I77.9 Disorder of arteries and arterioles, unspecified; Z90.49 Acquired absence of other specified parts of digestive tract; Z98.890 Other specified postprocedural states; Z95.1 Presence of aortocoronary bypass graft; Z88.8 Allergy status to other drugs, medicaments and biological substances; Z79.82 Long term (current) use of aspirin; Z79.4 Long term (current) use of insulin; Z79.899 Other long term (current) drug therapy; Z87.891 Personal history of nicotine dependence; Z82.49 Family history of ischemic heart disease and other diseases of the circulatory system

== ENCOUNTER → 2020-10-04 | Outpatient (CLI) | payer OTHER | LOC: SJCVCIMAG 09:35 | PROVIDERS: ATTEND Internal Medicine Cardiovascular Disease | DX: I25.10 Atherosclerotic heart disease of native coronary artery without angina pectoris (principal); E11.9 Type 2 diabetes mellitus without complications; I10 Essential (primary) hypertension; E78.5 Hyperlipidemia, unspecified; Z95.1 Presence of aortocoronary bypass graft; Z79.4 Long term (current) use of insulin; Z79.82 Long term (current) use of aspirin; Z79.899 Other long term (current) drug therapy ==

== ENCOUNTER → 2021-01-07 | Outpatient (CLI) | payer OTHER ==
[~2021-01-07] MED LIST changes: +ASA81BEC PO; +IRBESARTAN75 MG PO; +METFORMIN HCL1000 MG PO; +TOUJEO SOL300 UNIT/1 SUBQ
== END ==
LOC: LAB 11:06
PROVIDERS: ATTEND Student in an Organized Health Care Education/Training Program
DX: Z01.812 Encounter for preprocedural laboratory examination (principal); Z20.822 Contact with and (suspected) exposure to COVID-19

== ENCOUNTER → 2021-01-11 | Outpatient (CLI) | payer OTHER ==
[~2021-01-11] VITALS: Ht 180.3 cm; Wt 95.3 kg
--- NOTE | 2021-01-14 18:10 | PATH ---
[facility] [place] [address] PATHOLOGY RPT PROCEDURE Name: MIGUE ELIZABETH Room #: [facility] M.Mehnaz.#: [id number] Admission: 01/11/21 Date of : 47 Discharge: Report #: [id number] Path Case #: [id number] [facility] Accession Number: [id number] . 01 Material submitted: . colon - ASCENDING COLON POLYP. Modifiers: ascending . 02 Diagnosis: Polyp, ascending colon polyp, endoscopic biopsy: - Inflamed hyperplastic polyp with reactive changes. - Negative for dysplasia. . (IUV:mml; 01/14/2021) [facility] 01/14/2021 1347 Local . 02 Electronically signed: . Hawa Banegas MD, Pathologist NPI- [id number] . 01 Gross description: . The specimen is received in formalin, labeled "Migue Elizabeth ascending colon polyp". Received is a segment of pale flowers tissue measuring 0.3 cm in maximum dimensions. The specimen is submitted entirely in cassette A1. (CAA; 01/13/2021) QAC/QAC 01/13/2021 0921 Local . 02 Pathologist provided ICD-10: K63.5 . 02 CPT . 917271 Specimen Comment: A courtesy copy of this report has been sent to [phone] Specimen Comment: Report sent to Performed at: [address], [place] [id number] MD Fuad Mora MD Phone: [phone] Performed at: [address] [id number] MD Hawa Banegas MD Phone: [phone]
== END | disposition home or self-care (01) ==
LOC: GI 07:37
PROVIDERS: ATTEND Internal Medicine Gastroenterology
DX: Z12.11 Encounter for screening for malignant neoplasm of colon (principal); Z86.010 Personal history of colon polyps; K51.40 Inflammatory polyps of colon without complications; K64.8 Other hemorrhoids; I86.8 Varicose veins of other specified sites; I10 Essential (primary) hypertension; I25.10 Atherosclerotic heart disease of native coronary artery without angina pectoris; E11.9 Type 2 diabetes mellitus without complications; I25.2 Old myocardial infarction; E78.5 Hyperlipidemia, unspecified; Z98.890 Other specified postprocedural states; Z79.899 Other long term (current) drug therapy; Z79.4 Long term (current) use of insulin; Z95.1 Presence of aortocoronary bypass graft; Z85.46 Personal history of malignant neoplasm of prostate; Z87.442 Personal history of urinary calculi; Z98.41 Cataract extraction status, right eye; Z98.42 Cataract extraction status, left eye
CPT/HCPCS: 62110; 62900

== ENCOUNTER → 2021-06-08 | Outpatient (CLI) | payer OTHER | LOC: SJCVC 14:09 | PROVIDERS: ATTEND Internal Medicine Cardiovascular Disease | DX: R94.31 Abnormal electrocardiogram [ECG] [EKG] (principal); I11.9 Hypertensive heart disease without heart failure; E78.00 Pure hypercholesterolemia, unspecified; E11.9 Type 2 diabetes mellitus without complications; I65.29 Occlusion and stenosis of unspecified carotid artery; Z98.61 Coronary angioplasty status; Z98.890 Other specified postprocedural states; Z88.8 Allergy status to other drugs, medicaments and biological substances; Z79.82 Long term (current) use of aspirin; Z79.899 Other long term (current) drug therapy ==